=== PATIENT | female | born 1965 | race Caucasian/White ===

== ENCOUNTER 2017-11-28 08:01 | Emergency (ER) | payer OTHER ==
[2017-11-28] MEDS ORDERED: TORADOL PO (08:19)
[2017-11-28] MEDS ORDERED: CORTISPORIN OTI10 ML AD (08:19)
[2017-11-28] MEDS ORDERED: AMOXICILLIN500 MG PO (08:19)
[2017-11-28 08:28] VITALS: BP 118/63
== END 2017-11-28 08:29 | disposition home or self-care (01) | DRG 153 ==
LOC: ED 08:01
DX: H66.91 Otitis media, unspecified, right ear (principal)